=== PATIENT | female | born 1955 | race Two or more races ===

== ENCOUNTER 2022-02-10 23:03 | Inpatient (IN) | payer MEDICAID ==
[~2022-02-10] VITALS: Ht 162.6 cm; Wt 64.0 kg
[2022-02-10] MEDS ORDERED: ALBUTEROL SULFATE 5 MG/ML 20 ML NEB SOLN [BULK] NEB ONE (23:15)
[2022-02-10] MEDS ORDERED: MethylPREDNISolone SOD SUCC 125 MG/2 ML VIAL IVP ONE (23:15)
[2022-02-10] MEDS ORDERED: IPRATROPIUM BROMIDE 0.5 MG/2.5 ML NEB SOLUTION NEB ONE (23:15)
[2022-02-10 23:39] LABS: MEAN CORPUSCULAR HEMOGLOBIN 30.2 pg (26.0-34.0); PLATELET COUNT (AUTO) 380 K/uL (150-450)
[2022-02-10 23:47] LABS: BASOPHILS % (AUTO) 0.9 % (0.0-2.0); EOSINOPHILS % (AUTO) 0.9 % (1.0-6.0); HEMATOCRIT 38.4 % (36-46); HEMOGLOBIN 12.7 g/dL (12.0-16.0); LYMPHOCYTES % (AUTO) 17.2 % (22.0-44.0); MEAN CORPUSCULAR VOLUME 92 fL (80-100); MONOCYTES # (AUTO) 0.8 K/uL (0.1-1.0); MONOCYTES % (AUTO) 6.9 % (2.0-9.0); NEUTROPHILS # (AUTO) 8.6 K/uL (1.8-7.7); NEUTROPHILS % (AUTO) 74.1 % (40.0-70.0); RED CELL DISTRIBUTION WIDTH 12.4 % (11.5-14.5)
[2022-02-11] MEDS ORDERED: LEVOFLOXACIN 250 MG TABLET PO ONE
[2022-02-11 00:02] LABS: POTASSIUM 4.6 mmol/L (3.5-5.1)
[2022-02-11 00:03] LABS: ALBUMIN 2.7 g/dL (3.4-5.0); BILIRUBIN,TOTAL 0.3 mg/dL (0.1-1.0); CALCIUM, TOTAL 8.3 mg/dL (8.8-10.5); CREATININE 1.69 mg/dL (0.60-1.30); TOTAL PROTEIN, SERUM 7.5 g/dL (6.4-8.2)
[2022-02-11] MEDS ORDERED: INSULIN REGULAR, HUMAN 100 UNITS/ML IVP ONE (00:30)
[2022-02-11 00:37] LABS: ABG HCO3 21.4 mmol/L (22.0-26.0); ABG METHEMOGLOBIN 0.3 % (0.0-1.5); ABG OXYGEN CONTENT 19.4 mL/dL (15.0-23.0); ABG OXYGEN SATURATION 98.5 % (95.0-98.0); ABG OXYHEMOGLOBIN 98.2 % (94.0-100.0); ABG PCO2 41 mmHg (35-45); ABG PH 7.344 (7.35-7.450); ABG TOTAL HEMOGLOBIN 13.9 G/dL (12.0-18.0); PO2, ARTERIAL BG 136.3 mmHg (79.0-87.0); SITE, BLOOD GAS RT RADIAL; SOURCE, BLOOD GAS ARTERIAL; TEMPERATURE, FAHRENHEIT, BG 98.6 FAHREN (96.0-98.6)
[2022-02-11 00:38] LABS: INSPIRATORY TIME, BG 0.9 SEC; O2 DEVICE,BLOOD GAS BIPAP (ROOM AIR)
[2022-02-11] MEDS ORDERED: LEVOFLOXACIN 750 MG/D5% WATER 150 ML IV ONE (01:00)
[2022-02-11] MEDS ORDERED: SODIUM CHLORIDE 0.9% 1,900 ML IV ONE (02:00)
[2022-02-11 02:05] LABS: COVID AG,FIA SOURCE NASAL SWAB
[2022-02-11 02:15] LABS: GLUCOMETER DEV NAME(LOC) ERT.5; GLUCOSE,POINT OF CARE 391 MG/DL (70-110)
[2022-02-11 02:26] LABS: INFLUENZA TYPE A NEGATIVE FOR TYPE A (NEGATIVE); INFLUENZA TYPE B NEGATIVE FOR TYPE B (NEGATIVE)
[2022-02-11 03:03] LABS: LACTIC ACID 4.3 mmol/L (0.4-2.0)
[2022-02-11] MEDS ORDERED: ACETAMINOPHEN 325 MG TABLET PO PRN (03:30)
[2022-02-11] MEDS ORDERED: *CLINICAL-LEVOFLOXACIN IVPB DOSING CLINICAL ONE (03:30)
[2022-02-11] MEDS ORDERED: SODIUM CHLORIDE 0.9% 1,000 ML IV SCH (03:30)
[2022-02-11] MEDS ORDERED: ONDANSETRON HCL 4 MG/2 ML VIAL IVP PRN (03:30)
[2022-02-11] MEDS ORDERED: DILTIAZEM HCL 5 MG/ML 5 ML VIAL IVP ONE (04:00)
[2022-02-11 05:11] LABS: GLUCOMETER DEV NAME(LOC) ERT.5; GLUCOSE,POINT OF CARE 343 MG/DL (70-110)
[2022-02-11] MEDS ORDERED: HEPARIN SODIUM,PORCINE 5,000 UNITS/ML VIAL IVP PRN ×2 (07:00)
[2022-02-11] MEDS ORDERED: HEPARIN SODIUM 25000 UNITS/D5W 250 ML IV PRN (07:00)
[2022-02-11] MEDS: DILTIAZEM HCL 125 MG in DEXTROSE 5%-WATER 100 ML IV PRN ×2 (07:41→17:24)
[2022-02-11] MEDS ORDERED: HEPARIN SODIUM,PORCINE 5,000 UNITS/ML VIAL IVP ONE (08:00)
[2022-02-11 08:05] LABS: CALCIUM, TOTAL 7.9 mg/dL (8.8-10.5); CREATININE 1.31 mg/dL (0.60-1.30); POTASSIUM 4.8 mmol/L (3.5-5.1)
[2022-02-11 08:43] LABS: BASOPHILS % (AUTO) 0.2 % (0.0-2.0); EOSINOPHILS % (AUTO) 0 % (1.0-6.0); HEMATOCRIT 38.9 % (36-46); HEMOGLOBIN 12.8 g/dL (12.0-16.0); LYMPHOCYTES # (AUTO) 0.5 K/uL (1.0-4.8); LYMPHOCYTES % (AUTO) 5.1 % (22.0-44.0); MEAN CORPUSCULAR HEMOGLOBIN 30.8 pg (26.0-34.0); MEAN CORPUSCULAR HGB CONC 32.9 G/dL (31.0-37.0); MEAN CORPUSCULAR VOLUME 93 fL (80-100); MONOCYTES # (AUTO) 0.1 K/uL (0.1-1.0); MONOCYTES % (AUTO) 1.4 % (2.0-9.0); NEUTROPHILS # (AUTO) 9.4 K/uL (1.8-7.7); PLATELET COUNT (AUTO) 354 K/uL (150-450); RED BLOOD CELL COUNT(AUTO) 4.17 MIL/uL (4.00-5.20); RED CELL DISTRIBUTION WIDTH 12.5 % (11.5-14.5)
[2022-02-11 08:45] LABS: NEUTROPHILS % (AUTO) 93.3 % (40.0-70.0)
[2022-02-11] MEDS ORDERED: *CLINICAL-CEFEPIME DOSING CLINICAL ONE (08:45)
[2022-02-11] MEDS ORDERED: DEXTROSE 50%-WATER 25 GM/50 ML SYRINGE IVP PRN (08:45)
[2022-02-11 08:56] LABS: INR 1.1 (0.9-1.1); PROTHROMBIN TIME 11.4 SEC (9.4-11.6)
[2022-02-11] MEDS ORDERED: MethylPREDNISolone SOD SUCC 125 MG/2 ML VIAL IVP SCH (09:00)
[2022-02-11 09:03] LABS: ALBUMIN 2.7 g/dL (3.4-5.0); BILIRUBIN,TOTAL 0.2 mg/dL (0.1-1.0); TOTAL PROTEIN, SERUM 7.5 g/dL (6.4-8.2)
[2022-02-11] MEDS: MethylPREDNISolone SOD SUCC 40 MG/ML VIAL IVP SCH ×2 (09:17→15:30)
[2022-02-11] MEDS: INSULIN GLARGINE,HUM.REC.ANLOG 100 UNITS/ML SQ SCH ×2 (09:17→20:37)
[2022-02-11] MEDS: SODIUM CHLORIDE 0.9% 1,000 ML IV SCH ×2 (09:17→23:00)
[2022-02-11] MEDS: CEFEPIME HCL 1 GM in DEXTROSE 5%-WATER 50 ML IV SCH (11:10)
[2022-02-11 14:40] LABS: APPEARANCE,URINE CLEAR (CLEAR); BILIRUBIN,URINE NEGATIVE (NEGATIVE); GLUCOSE, URINE (UA) >=1000 mg/dL (NEGATIVE); LEUKOCYTE ESTERASE ,URINE NEGATIVE (NEGATIVE); NITRATE,URINE NEGATIVE (NEGATIVE); OCCULT BLOOD,URINE SMALL (NEGATIVE); PROTEIN,URINE 100-200,SEE CONFIRM mg/dL (NEGATIVE); UROBILINOGEN,URINE <=1.0 mg/dL (<=1.0)
[2022-02-11 14:46] LABS: SULFOSALICYLIC ACID,URINE 2+ (Negative)
[2022-02-11 14:47] LABS: BACTERIA,URINE None Seen /HPF (None Seen); SQUAMOUS EPITHELIAL CELL,UR Few /LPF (None Seen); WBC,URINE None Seen /HPF (0-5)
[2022-02-11] MEDS: INSULIN LISPRO 100 UNITS/ML SQ PRN ×2 (15:23→18:21)
[2022-02-12] MEDS: MethylPREDNISolone SOD SUCC 40 MG/ML VIAL IVP SCH ×4 (00:45→23:58)
[2022-02-12] MEDS: CEFEPIME HCL 1 GM in DEXTROSE 5%-WATER 50 ML IV SCH ×3 (00:50→23:54)
[2022-02-12] MEDS: DOXYCYCLINE HYCLATE 100 MG in DEXTROSE 5%-WATER 100 ML IV SCH ×3 (01:24→23:54)
[2022-02-12] MEDS: DILTIAZEM HCL 125 MG in DEXTROSE 5%-WATER 100 ML IV PRN (01:53)
[2022-02-12 07:45] LABS: BASOPHILS % (AUTO) 0.3 % (0.0-2.0); EOSINOPHILS % (AUTO) 0 % (1.0-6.0); HEMATOCRIT 38.5 % (36-46); HEMOGLOBIN 12.7 g/dL (12.0-16.0); LYMPHOCYTES # (AUTO) 1.7 K/uL (1.0-4.8); LYMPHOCYTES % (AUTO) 8.2 % (22.0-44.0); MEAN CORPUSCULAR HEMOGLOBIN 30.3 pg (26.0-34.0); MEAN CORPUSCULAR HGB CONC 33.1 G/dL (31.0-37.0); MEAN CORPUSCULAR VOLUME 91 fL (80-100); MONOCYTES # (AUTO) 0.5 K/uL (0.1-1.0); MONOCYTES % (AUTO) 2.4 % (2.0-9.0); NEUTROPHILS # (AUTO) 18.9 K/uL (1.8-7.7); PLATELET COUNT (AUTO) 365 K/uL (150-450); RED BLOOD CELL COUNT(AUTO) 4.21 MIL/uL (4.00-5.20); RED CELL DISTRIBUTION WIDTH 12.4 % (11.5-14.5)
[2022-02-12 08:11] LABS: NEUTROPHILS % (AUTO) 89.1 % (40.0-70.0)
[2022-02-12 08:17] LABS: ANION GAP 10 mmol/L (8-16); CALCIUM, TOTAL 8.4 mg/dL (8.8-10.5); CARBON DIOXIDE 24 mmol/L (22-29); CHLORIDE 104 mmol/L (98-107); CREATININE 0.91 mg/dL (0.60-1.30); GLOMERULAR FILTR. RATE CALC > 60 mL/min (>60); GLUCOSE,RANDOM 272 mg/dL (70-110); POTASSIUM 3.9 mmol/L (3.5-5.1); SODIUM SERUM 138 mmol/L (136-145); UREA NITROGEN, BLOOD 20 mg/dL (7-18)
[2022-02-12] MEDS: INSULIN GLARGINE,HUM.REC.ANLOG 100 UNITS/ML SQ SCH (08:24)
[2022-02-12] MEDS: DILTIAZEM HCL CD 180 MG ER CAPSULE PO SCH (09:28)
[2022-02-12] MEDS: SODIUM CHLORIDE 0.9% 1,000 ML IV SCH ×2 (10:47→23:59)
[2022-02-12] MEDS ORDERED: AMIODARONE HCL 360 MG in DEXTROSE 5%-WATER 242.8 ML IV ONE (11:15)
[2022-02-12] MEDS ORDERED: DIGOXIN 250 MCG/ML 2 ML AMP IVP ONE (11:15)
[2022-02-12] MEDS ORDERED: AMIODARONE HCL 150 MG in DEXTROSE 5%-WATER 97 ML IV ONE (11:15)
[2022-02-12] MEDS: IPRATROPIUM BROMIDE 0.5 MG/2.5 ML NEB SOLUTION NEB PRN ×2 (11:21→23:36)
[2022-02-12] MEDS: ALBUTEROL SULFATE 2.5 MG/0.5 ML NEB SOLUTION NEB PRN ×2 (11:21→23:36)
[2022-02-12] MEDS ORDERED: AMIODARONE HCL 540 MG in DEXTROSE 5%-WATER 239.2 ML IV ONE (18:00)
[2022-02-13] VITALS: BP 196/123
[2022-02-13] MEDS: INSULIN GLARGINE,HUM.REC.ANLOG 100 UNITS/ML SQ SCH ×3 (00:37→20:15)
[2022-02-13] MEDS: INSULIN LISPRO 100 UNITS/ML SQ PRN ×3 (00:37→20:16)
[2022-02-13] MEDS: NITROGLYCERIN 2% (1 GM=INCH) OINTMENT PACKET TP SCH ×4 (01:16→18:24)
[2022-02-13 04:00] VITALS: BP 153/74
[2022-02-13 04:51] LABS: GLUCOSE,POINT OF CARE 293 MG/DL (70-110)
[2022-02-13] MEDS ORDERED: LEVOFLOXACIN 750 MG/D5% WATER 150 ML IV SCH ×2 (06:00→09:00)
[2022-02-13 06:51] LABS: GLUCOSE,POINT OF CARE 254 MG/DL (70-110)
[2022-02-13] MEDS: MethylPREDNISolone SOD SUCC 40 MG/ML VIAL IVP SCH ×2 (09:06→20:14)
[2022-02-13 09:11] LABS: BASOPHILS % (AUTO) 0.1 % (0.0-2.0); EOSINOPHILS % (AUTO) 0 % (1.0-6.0); HEMATOCRIT 36.1 % (36-46); HEMOGLOBIN 12.1 g/dL (12.0-16.0); LYMPHOCYTES # (AUTO) 1.3 K/uL (1.0-4.8); LYMPHOCYTES % (AUTO) 5.3 % (22.0-44.0); MEAN CORPUSCULAR HEMOGLOBIN 30.1 pg (26.0-34.0); MEAN CORPUSCULAR HGB CONC 33.4 G/dL (31.0-37.0); MEAN CORPUSCULAR VOLUME 90 fL (80-100); MONOCYTES # (AUTO) 0.7 K/uL (0.1-1.0); MONOCYTES % (AUTO) 2.7 % (2.0-9.0); NEUTROPHILS # (AUTO) 22.4 K/uL (1.8-7.7); PLATELET COUNT (AUTO) 389 K/uL (150-450); RED CELL DISTRIBUTION WIDTH 12.4 % (11.5-14.5)
[2022-02-13 09:22] LABS: NEUTROPHILS % (AUTO) 91.9 % (40.0-70.0)
[2022-02-13] MEDS: DOXYCYCLINE HYCLATE 100 MG in DEXTROSE 5%-WATER 100 ML IV SCH ×2 (10:00→23:46)
[2022-02-13 10:02] LABS: ALBUMIN 2.4 g/dL (3.4-5.0); BILIRUBIN,TOTAL 0.3 mg/dL (0.1-1.0); CALCIUM, TOTAL 8.3 mg/dL (8.8-10.5); CREATININE 0.94 mg/dL (0.60-1.30); POTASSIUM 3.1 mmol/L (3.5-5.1); TOTAL PROTEIN, SERUM 6.8 g/dL (6.4-8.2)
[2022-02-13 11:07] VITALS: BP 173/83
[2022-02-13] MEDS: CEFEPIME HCL 1 GM in DEXTROSE 5%-WATER 50 ML IV SCH (12:30)
[2022-02-13] MEDS: DILTIAZEM HCL CD 180 MG ER CAPSULE PO SCH (12:30)
[2022-02-13] MEDS: AMIODARONE HCL 750 MG in DEXTROSE 5%-WATER 485 ML IV SCH (12:34)
[2022-02-13] MEDS ORDERED: APIXABAN 5 MG TABLET PO SCH (13:15)
[2022-02-13] MEDS ORDERED: HEPARIN SODIUM,PORCINE 5,000 UNITS/ML VIAL IVP PRN ×2 (13:30)
[2022-02-13] MEDS ORDERED: HEPARIN SODIUM 25000 UNITS/D5W 250 ML IV PRN (13:30)
[2022-02-13] MEDS: ALBUTEROL SULFATE 2.5 MG/0.5 ML NEB SOLUTION NEB PRN (13:50)
[2022-02-13] MEDS: IPRATROPIUM BROMIDE 0.5 MG/2.5 ML NEB SOLUTION NEB PRN (13:51)
[2022-02-13] MEDS: LISINOPRIL 5 MG TABLET PO SCH ×2 (14:15→20:14)
[2022-02-13 15:30] VITALS: BP 182/78
[2022-02-13] MEDS ORDERED: SODIUM CHLORIDE 0.9% 500 ML IV ONE (19:42)
[2022-02-13 20:42] VITALS: BP 176/72
[2022-02-13 22:02] LABS: GLUCOMETER DEV NAME(LOC) 5S.2B; GLUCOSE,POINT OF CARE 226 MG/DL (70-110)
[2022-02-14] VITALS (7 sets, daily range): BP systolic 132–202; BP diastolic 69–97
[2022-02-14] MEDS: NITROGLYCERIN 2% (1 GM=INCH) OINTMENT PACKET TP SCH ×4 (00:33→18:13)
[2022-02-14] MEDS: CEFEPIME HCL 1 GM in DEXTROSE 5%-WATER 50 ML IV SCH ×2 (00:33→11:19)
[2022-02-14 05:31] LABS: BASOPHILS % (AUTO) 0.2 % (0.0-2.0); EOSINOPHILS % (AUTO) 0 % (1.0-6.0); HEMATOCRIT 34.5 % (36-46); HEMOGLOBIN 11.7 g/dL (12.0-16.0); LYMPHOCYTES # (AUTO) 0.9 K/uL (1.0-4.8); LYMPHOCYTES % (AUTO) 3.7 % (22.0-44.0); MEAN CORPUSCULAR HEMOGLOBIN 30.5 pg (26.0-34.0); MEAN CORPUSCULAR HGB CONC 33.9 G/dL (31.0-37.0); MEAN CORPUSCULAR VOLUME 90 fL (80-100); MONOCYTES # (AUTO) 0.5 K/uL (0.1-1.0); MONOCYTES % (AUTO) 2.3 % (2.0-9.0); NEUTROPHILS # (AUTO) 21.8 K/uL (1.8-7.7); PLATELET COUNT (AUTO) 348 K/uL (150-450); RED BLOOD CELL COUNT(AUTO) 3.84 MIL/uL (4.00-5.20); RED CELL DISTRIBUTION WIDTH 12.6 % (11.5-14.5)
[2022-02-14 05:47] LABS: ALBUMIN 2.2 g/dL (3.4-5.0); BILIRUBIN,TOTAL 0.4 mg/dL (0.1-1.0); CALCIUM, TOTAL 8.2 mg/dL (8.8-10.5); CREATININE 0.94 mg/dL (0.60-1.30); POTASSIUM 3.5 mmol/L (3.5-5.1); TOTAL PROTEIN, SERUM 6.2 g/dL (6.4-8.2)
[2022-02-14 06:19] LABS: NEUTROPHILS % (AUTO) 93.8 % (40.0-70.0)
[2022-02-14] MEDS: INSULIN LISPRO 100 UNITS/ML SQ PRN ×4 (06:24→20:45)
[2022-02-14 07:11] LABS: GLUCOMETER DEV NAME(LOC) 5S.1B; GLUCOSE,POINT OF CARE 218 MG/DL (70-110)
[2022-02-14] MEDS: INSULIN GLARGINE,HUM.REC.ANLOG 100 UNITS/ML SQ SCH ×2 (08:00→20:45)
[2022-02-14] MEDS: DILTIAZEM HCL CD 180 MG ER CAPSULE PO SCH (08:13)
[2022-02-14] MEDS: MethylPREDNISolone SOD SUCC 40 MG/ML VIAL IVP SCH ×2 (08:35→20:47)
[2022-02-14] MEDS: LISINOPRIL 5 MG TABLET PO SCH (08:36)
[2022-02-14] MEDS: DOXYCYCLINE HYCLATE 100 MG in DEXTROSE 5%-WATER 100 ML IV SCH ×2 (11:19→23:24)
[2022-02-14 11:46] LABS: GLUCOMETER DEV NAME(LOC) 5S.2B; GLUCOSE,POINT OF CARE 187 MG/DL (70-110)
[2022-02-14] MEDS ORDERED: HydrALAZINE HCL 20 MG/ML VIAL IVP PRN (13:15)
[2022-02-14] MEDS: METOPROLOL SUCCINATE 25 MG ER TABLET PO SCH (15:19)
[2022-02-14] MEDS: ATORVASTATIN CALCIUM 40 MG TABLET PO SCH (15:19)
[2022-02-14] MEDS: AmLODIPine BESYLATE 5 MG TABLET PO SCH ×2 (15:19→20:47)
[2022-02-14 16:56] LABS: GLUCOMETER DEV NAME(LOC) 5S.1B; GLUCOSE,POINT OF CARE 219 MG/DL (70-110)
[2022-02-14] MEDS: AMIODARONE HCL 750 MG in DEXTROSE 5%-WATER 485 ML IV SCH (19:20)
[2022-02-14] MEDS: LISINOPRIL 20 MG TABLET PO SCH (20:47)
[2022-02-14 22:40] LABS: GLUCOMETER DEV NAME(LOC) 5S.2B; GLUCOSE,POINT OF CARE 246 MG/DL (70-110)
[2022-02-14 22:41] LABS: GLUCOMETER DEV NAME(LOC) 5S.2B; GLUCOSE,POINT OF CARE 240 MG/DL (70-110)
[2022-02-15] VITALS (8 sets, daily range): BP systolic 153–190; BP diastolic 68–86
[2022-02-15] MEDS: CEFEPIME HCL 1 GM in DEXTROSE 5%-WATER 50 ML IV SCH ×3 (01:39→23:09)
[2022-02-15] MEDS: NITROGLYCERIN 2% (1 GM=INCH) OINTMENT PACKET TP SCH ×5 (01:40→23:10)
[2022-02-15] MEDS: ALBUTEROL SULFATE 2.5 MG/0.5 ML NEB SOLUTION NEB PRN ×2 (02:37→14:10)
[2022-02-15] MEDS: IPRATROPIUM BROMIDE 0.5 MG/2.5 ML NEB SOLUTION NEB PRN ×2 (02:37→14:10)
[2022-02-15] MEDS: INSULIN LISPRO 100 UNITS/ML SQ PRN ×2 (05:54→20:28)
[2022-02-15 07:09] LABS: BASOPHILS % (AUTO) 0.2 % (0.0-2.0); EOSINOPHILS % (AUTO) 0 % (1.0-6.0); HEMATOCRIT 36.3 % (36-46); HEMOGLOBIN 12.2 g/dL (12.0-16.0); LYMPHOCYTES # (AUTO) 0.8 K/uL (1.0-4.8); LYMPHOCYTES % (AUTO) 3.5 % (22.0-44.0); MEAN CORPUSCULAR HEMOGLOBIN 30.4 pg (26.0-34.0); MEAN CORPUSCULAR HGB CONC 33.6 G/dL (31.0-37.0); MEAN CORPUSCULAR VOLUME 90 fL (80-100); MONOCYTES # (AUTO) 0.5 K/uL (0.1-1.0); NEUTROPHILS # (AUTO) 22.3 K/uL (1.8-7.7); PLATELET COUNT (AUTO) 352 K/uL (150-450); RED BLOOD CELL COUNT(AUTO) 4.02 MIL/uL (4.00-5.20); RED CELL DISTRIBUTION WIDTH 12.4 % (11.5-14.5)
[2022-02-15 07:11] LABS: POTASSIUM 3.2 mmol/L (3.5-5.1)
[2022-02-15 07:12] LABS: ALBUMIN 2.4 g/dL (3.4-5.0); BILIRUBIN,TOTAL 0.6 mg/dL (0.1-1.0); CALCIUM, TOTAL 8.2 mg/dL (8.8-10.5); CREATININE 0.98 mg/dL (0.60-1.30); TOTAL PROTEIN, SERUM 6.3 g/dL (6.4-8.2)
[2022-02-15 07:15] LABS: NEUTROPHILS % (AUTO) 94.3 % (40.0-70.0)
[2022-02-15 07:50] LABS: INR 1.1 (0.9-1.1); PROTHROMBIN TIME 11.6 SEC (9.4-11.6)
[2022-02-15] MEDS ORDERED: IOHEXOL 300 MG/ML 50 ML VIAL ONE (08:23)
[2022-02-15] MEDS ORDERED: IOHEXOL 300 MG/ML 100 ML VIAL ONE (08:24)
[2022-02-15] MEDS ORDERED: LIDOCAINE/PF 1% 30 ML VIAL ONE (08:24)
[2022-02-15] MEDS ORDERED: SODIUM BICARBONATE 50 MEQ/50 ML VIAL ONE (08:24)
[2022-02-15] MEDS ORDERED: HEPARIN SODIUM 1000 UNITS/NS 1,000 ML ONE (08:24)
[2022-02-15 08:44] LABS: BASOPHILS % (AUTO) 0.2 % (0.0-2.0); EOSINOPHILS % (AUTO) 0 % (1.0-6.0); HEMATOCRIT 35.7 % (36-46); HEMOGLOBIN 12.1 g/dL (12.0-16.0); LYMPHOCYTES # (AUTO) 0.8 K/uL (1.0-4.8); LYMPHOCYTES % (AUTO) 3.4 % (22.0-44.0); MEAN CORPUSCULAR HEMOGLOBIN 30.3 pg (26.0-34.0); MEAN CORPUSCULAR HGB CONC 33.9 G/dL (31.0-37.0); MEAN CORPUSCULAR VOLUME 89 fL (80-100); MONOCYTES # (AUTO) 0.5 K/uL (0.1-1.0); MONOCYTES % (AUTO) 2.1 % (2.0-9.0); PLATELET COUNT (AUTO) 344 K/uL (150-450); RED CELL DISTRIBUTION WIDTH 12.3 % (11.5-14.5)
[2022-02-15 08:48] LABS: NEUTROPHILS % (AUTO) 94.3 % (40.0-70.0)
[2022-02-15] MEDS: INSULIN GLARGINE,HUM.REC.ANLOG 100 UNITS/ML SQ SCH ×2 (09:00→20:27)
[2022-02-15] MEDS ORDERED: FentaNYL CITRATE PF 100 MCG/2 ML VIAL ONE (09:12)
[2022-02-15] MEDS ORDERED: MIDAZOLAM HCL 2 MG/2 ML VIAL ONE (09:13)
[2022-02-15] MEDS ORDERED: LIDOCAINE 1% 30 ML/SOD BICARB 8.4% 4 ML SQ ONE (09:15)
[2022-02-15] MEDS ORDERED: HEPARIN SODIUM 1000 UNITS/NS 1,000 ML IARTER ONE (09:15)
[2022-02-15] MEDS ORDERED: SODIUM CHLORIDE 0.9% 500 ML IV ONE (09:15)
[2022-02-15] MEDS ORDERED: IOHEXOL 300 MG/ML 100 ML VIAL ICOR ONE (09:15)
[2022-02-15] MEDS ORDERED: VERAPAMIL HCL 2.5 MG/ML 2 ML VIAL ONE (09:52)
[2022-02-15] MEDS ORDERED: NITROGLYCERIN 50 MG/D5% WATER 250 ML ONE (09:53)
[2022-02-15] MEDS ORDERED: HEPARIN SODIUM,PORCINE 1,000 UNITS/ML 10 ML VIAL ONE (09:54)
[2022-02-15] MEDS ORDERED: HEPARIN SODIUM,PORCINE 1,000 UNITS/ML 10 ML VIAL IARTER ONE (10:45)
[2022-02-15] MEDS ORDERED: VERAPAMIL HCL 2.5 MG/ML 2 ML VIAL IARTER ONE (10:45)
[2022-02-15] MEDS ORDERED: NITROGLYCERIN/D5W 50 MG/250 ML IV BOTTLE ICOR ONE (10:45)
[2022-02-15] MEDS: MethylPREDNISolone SOD SUCC 40 MG/ML VIAL IVP SCH ×2 (12:50→20:26)
[2022-02-15] MEDS: ATORVASTATIN CALCIUM 40 MG TABLET PO SCH (12:51)
[2022-02-15] MEDS: LISINOPRIL 20 MG TABLET PO SCH ×2 (12:51→20:26)
[2022-02-15] MEDS: METOPROLOL SUCCINATE 25 MG ER TABLET PO SCH (12:51)
[2022-02-15] MEDS: AmLODIPine BESYLATE 5 MG TABLET PO SCH ×2 (12:52→20:26)
[2022-02-15] MEDS: DOXYCYCLINE HYCLATE 100 MG in DEXTROSE 5%-WATER 100 ML IV SCH ×2 (13:01→21:52)
[2022-02-15] MEDS: AMIODARONE HCL 200 MG TABLET PO SCH ×2 (13:03→20:26)
[2022-02-15 17:46] LABS: GLUCOMETER DEV NAME(LOC) 5S.2B; GLUCOSE,POINT OF CARE 173 MG/DL (70-110)
[2022-02-15] MEDS ORDERED: MAGNESIUM OXIDE 400 MG TABLET PO PRN (18:45)
[2022-02-15] MEDS ORDERED: MAGNESIUM SULFATE 4 GM/WATER 100 ML IV PRN (18:45)
[2022-02-15] MEDS ORDERED: POTASSIUM CHLORIDE 20 MEQ ER TABLET PO PRN (18:45)
[2022-02-15] MEDS ORDERED: POTASSIUM CHL 10 MEQ/WATER 50 ML IV PRN (18:45)
[2022-02-15] MEDS ORDERED: MAGNESIUM SULFATE 2 GM/WATER 50 ML IV PRN (18:45)
[2022-02-16] VITALS: BP 127/73
[2022-02-16 04:00] VITALS: BP 164/82
[2022-02-16 04:31] LABS: GLUCOMETER DEV NAME(LOC) 5S.2B; GLUCOSE,POINT OF CARE 300 MG/DL (70-110)
[2022-02-16] MEDS: NITROGLYCERIN 2% (1 GM=INCH) OINTMENT PACKET TP SCH ×3 (05:30→17:12)
[2022-02-16] MEDS ORDERED: HEPARIN SODIUM,PORCINE 5,000 UNITS/ML VIAL IVP ONE (06:00)
[2022-02-16] MEDS ORDERED: HEPARIN SODIUM,PORCINE 5,000 UNITS/ML VIAL IVP PRN ×2 (06:00)
[2022-02-16] MEDS: INSULIN LISPRO 100 UNITS/ML SQ PRN ×4 (06:26→20:15)
[2022-02-16] MEDS: HEPARIN SODIUM 25000 UNITS/D5W 250 ML IV PRN ×2 (06:44→12:47)
[2022-02-16 06:46] LABS: GLUCOMETER DEV NAME(LOC) 5S.2B; GLUCOSE,POINT OF CARE 203 MG/DL (70-110)
[2022-02-16 06:51] LABS: BASOPHILS % (AUTO) 0.1 % (0.0-2.0); EOSINOPHILS % (AUTO) 0 % (1.0-6.0); HEMATOCRIT 37.9 % (36-46); HEMOGLOBIN 13.1 g/dL (12.0-16.0); LYMPHOCYTES # (AUTO) 0.8 K/uL (1.0-4.8); LYMPHOCYTES % (AUTO) 3.3 % (22.0-44.0); MEAN CORPUSCULAR HGB CONC 34.6 G/dL (31.0-37.0); MEAN CORPUSCULAR VOLUME 89 fL (80-100); MONOCYTES # (AUTO) 0.8 K/uL (0.1-1.0); MONOCYTES % (AUTO) 3.3 % (2.0-9.0); NEUTROPHILS # (AUTO) 22.6 K/uL (1.8-7.7); PLATELET COUNT (AUTO) 371 K/uL (150-450); RED BLOOD CELL COUNT(AUTO) 4.23 MIL/uL (4.00-5.20); RED CELL DISTRIBUTION WIDTH 12.2 % (11.5-14.5)
[2022-02-16 06:52] LABS: NEUTROPHILS % (AUTO) 93.3 % (40.0-70.0)
[2022-02-16 07:08] LABS: PROTHROMBIN TIME 10.9 SEC (9.4-11.6)
[2022-02-16 07:14] LABS: ALANINE AMINOTRANSFERASE 30 U/L (12-78); ALBUMIN 2.3 g/dL (3.4-5.0); ALKALINE PHOSPHATASE 92 U/L (46-116); ANION GAP 5 mmol/L (8-16); ASPARTATE AMINOTRANSFERASE 26 U/L (15-37); BILIRUBIN,TOTAL 0.6 mg/dL (0.1-1.0); CALCIUM, TOTAL 8.2 mg/dL (8.8-10.5); CARBON DIOXIDE 28 mmol/L (22-29); CHLORIDE 104 mmol/L (98-107); CREATININE 0.87 mg/dL (0.60-1.30); GLOMERULAR FILTR. RATE CALC > 60 mL/min (>60); GLUCOSE,RANDOM 211 mg/dL (70-110); POTASSIUM 3.7 mmol/L (3.5-5.1); SODIUM SERUM 137 mmol/L (136-145); TOTAL PROTEIN, SERUM 6.3 g/dL (6.4-8.2); UREA NITROGEN, BLOOD 28 mg/dL (7-18)
[2022-02-16 08:29] VITALS: BP 155/101
[2022-02-16] MEDS: ATORVASTATIN CALCIUM 40 MG TABLET PO SCH (09:25)
[2022-02-16] MEDS: LISINOPRIL 20 MG TABLET PO SCH ×2 (09:25→20:13)
[2022-02-16] MEDS: AmLODIPine BESYLATE 5 MG TABLET PO SCH ×2 (09:25→20:13)
[2022-02-16] MEDS: MethylPREDNISolone SOD SUCC 40 MG/ML VIAL IVP SCH (09:25)
[2022-02-16] MEDS: AMIODARONE HCL 200 MG TABLET PO SCH ×2 (09:26→20:13)
[2022-02-16] MEDS: METOPROLOL SUCCINATE 25 MG ER TABLET PO SCH (09:26)
[2022-02-16] MEDS: INSULIN GLARGINE,HUM.REC.ANLOG 100 UNITS/ML SQ SCH ×2 (09:28→20:14)
[2022-02-16] MEDS: CEFEPIME HCL 1 GM in DEXTROSE 5%-WATER 50 ML IV SCH (11:15)
[2022-02-16] MEDS: DOXYCYCLINE HYCLATE 100 MG in DEXTROSE 5%-WATER 100 ML IV SCH ×2 (11:15→21:22)
[2022-02-16 11:56] VITALS: BP 163/75
[2022-02-16 15:45] VITALS: BP 142/70
[2022-02-16] MEDS ORDERED: PredniSONE 20 MG TABLET PO SCH (16:15)
[2022-02-16 17:41] LABS: GLUCOMETER DEV NAME(LOC) 5S.2B; GLUCOSE,POINT OF CARE 168 MG/DL (70-110)
[2022-02-16 20:41] VITALS: BP 150/71
[2022-02-17 06:51] LABS: GLUCOMETER DEV NAME(LOC) 5S.2B; GLUCOSE,POINT OF CARE 159 MG/DL (70-110)
== END 2022-02-16 22:40 | disposition short-term general hospital (02) | DRG 720 ==
LOC: EMS 23:05 → EDBD 02-11 05:26 → AHU 02-11 05:26 → ICU 02-12 19:16 → 5S 02-13 06:45
PROVIDERS: ADMIT Internal Medicine; ATTEND Internal Medicine
PROC: 5A09357 Assistance with Respiratory Ventilation, Less than 24 Consecutive Hours, Continuous Positive Airway Pressure (ICD-10-PCS; 2022-02-11)
PROC: 4A023N7 Measurement of Cardiac Sampling and Pressure, Left Heart, Percutaneous Approach (ICD-10-PCS; principal; 2022-02-15)
PROC: B2111ZZ Fluoroscopy of Multiple Coronary Arteries using Low Osmolar Contrast (ICD-10-PCS; 2022-02-15)
PROC: B2151ZZ Fluoroscopy of Left Heart using Low Osmolar Contrast (ICD-10-PCS; 2022-02-15)
PROC: B41G1ZZ Fluoroscopy of Left Lower Extremity Arteries using Low Osmolar Contrast (ICD-10-PCS; 2022-02-15)
DX: A41.9 Sepsis, unspecified organism (principal); J96.01 Acute respiratory failure with hypoxia; I21.4 Non-ST elevation (NSTEMI) myocardial infarction; I50.43 Acute on chronic combined systolic (congestive) and diastolic (congestive) heart failure; E87.20 Acidosis, unspecified; J18.9 Pneumonia, unspecified organism; I82.612 Acute embolism and thrombosis of superficial veins of left upper extremity; J44.0 Chronic obstructive pulmonary disease with (acute) lower respiratory infection; J91.8 Pleural effusion in other conditions classified elsewhere; N17.9 Acute kidney failure, unspecified; I48.91 Unspecified atrial fibrillation; I11.0 Hypertensive heart disease with heart failure; F17.200 Nicotine dependence, unspecified, uncomplicated; J44.1 Chronic obstructive pulmonary disease with (acute) exacerbation; Z20.822 Contact with and (suspected) exposure to COVID-19; J20.9 Acute bronchitis, unspecified; I25.10 Atherosclerotic heart disease of native coronary artery without angina pectoris; I25.5 Ischemic cardiomyopathy; E11.9 Type 2 diabetes mellitus without complications; Z88.0 Allergy status to penicillin; Z79.899 Other long term (current) drug therapy
CPT/HCPCS: 71045; 71250; 80048; 80053; 81001; 81002; 82550; 82805; 82962; 83036; 83605; 83735; 83880; 84132; 84145; 84484; 85025; 85379; 85610; 85730; 87040; 87070; 87081; 87481; 87804; 92610; 93005; 93306; 93970; 94640; 94660; 97110; 97116; 97162; 97167; 97535; 99291; G0378; J0282; J0360; J0692; J1160; J1644; J1815; J1956; J2250; J2920; J2930; J3010; J3490; J7030; J7040; J7060; Q9967; 36415-L1; 36415-TC; J7613; U0003; Z7610